=== PATIENT | male | born 1980 | race African-American/Black ===

== ENCOUNTER 2023-10-31 10:21 | Emergency (ER) | payer OTHER ==
[~2023-10-31] VITALS: Ht 182.9 cm; Wt 114.1 kg
[2023-10-31 12:15] VITALS: BP 161/108; PULSE 103; RESP 16; TEMP 97.6; O2SAT 98
[2023-10-31] MEDS: LIDOCAINE 1% HCL (LOCAL ANESTH.) INJ 20ML MDV IJ ONE (12:26)
[2023-10-31] MEDS: cefTRIAXone SOD 1,000 MG VL IM ONE (12:35)
[2023-10-31] MEDS ORDERED: IBUP-1456 PO (13:00)
[2023-10-31] MEDS ORDERED: BACDST PO (13:00)
== END 2023-10-31 13:06 | disposition home or self-care (01) ==
LOC: ER 10:21
DX: L02.31 Cutaneous abscess of buttock (principal); E11.9 Type 2 diabetes mellitus without complications
CPT/HCPCS: 10060; 96372; 99283; J0696; J2001

== ENCOUNTER 2023-11-02 12:05 | Emergency (ER) | payer OTHER ==
[~2023-11-02] VITALS: Ht 182.9 cm; Wt 110.5 kg
[~2023-11-02 12:05] MED LIST: BACDST PO; IBUP-1456 PO
[2023-11-02 14:36] VITALS: BP 143/85; PULSE 92; RESP 16; TEMP 98; O2SAT 95
== END 2023-11-02 15:36 | disposition home or self-care (01) ==
LOC: ER 12:05
DX: L02.31 Cutaneous abscess of buttock (principal); E11.9 Type 2 diabetes mellitus without complications; Z48.01 Encounter for change or removal of surgical wound dressing; Z79.899 Other long term (current) drug therapy

== ENCOUNTER 2023-11-11 02:51 | Emergency (ER) | payer OTHER ==
[~2023-11-11] VITALS: Ht 182.9 cm; Wt 115.6 kg
[2023-11-11 03:13] VITALS: BP 148/108; PULSE 89; RESP 18; TEMP 98.9; O2SAT 98
== END 2023-11-11 04:46 | disposition home or self-care (01) ==
LOC: ER 02:51
DX: L02.31 Cutaneous abscess of buttock (principal); E11.9 Type 2 diabetes mellitus without complications; Z48.01 Encounter for change or removal of surgical wound dressing; Z79.899 Other long term (current) drug therapy